=== PATIENT | male | born 1980 | race Caucasian/White ===

== ENCOUNTER 2018-06-28 19:21 | Emergency (ER) | payer OTHER ==
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
[2018-06-28] MEDS ORDERED: FEXO-72 PO (19:32)
[2018-06-28 20:00] VITALS: BP 123/101
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
== END 2018-06-28 20:22 | disposition home or self-care (01) ==
LOC: ER 19:28
DX: S16.1XXA Strain of muscle, fascia and tendon at neck level, initial encounter (principal); R51 Headache; V64.5XXA Driver of heavy transport vehicle injured in collision with heavy transport vehicle or bus in traffic accident, initial encounter
CPT/HCPCS: 72040; 99283; L0172

== ENCOUNTER → 2018-07-16 | Outpatient (REF) | payer OTHER ==
[~2018-07-16] MED LIST: FEXO-72 PO
[2018-07-16 11:50] LABS: PLATELET COUNT, AUTOMATED 246 K/uL (150-450)
== END ==
LOC: ZZSTITCHES 11:43
PROVIDERS: ATTEND Physician Assistant
DX: R00.2 Palpitations (principal); R06.02 Shortness of breath
CPT/HCPCS: 82040; 82247; 82310; 82374; 82435; 82565; 82947; 84075; 84132; 84155; 84295; 84450; 84460; 84520; 85025; 85379